=== PATIENT | female | born 1945 | race Hispanic/Latino ===

== ENCOUNTER → 2017-03-19 | Outpatient (CLI) | payer OTHER ==
[~2017-03-19] MED LIST: AMLO-334 PO; SIMV10TA6 PO
== END | disposition home or self-care (01) ==
LOC: RAH 08:03
PROVIDERS: ATTEND Family Medicine
DX: Z12.31 Encounter for screening mammogram for malignant neoplasm of breast (principal)
CPT/HCPCS: 77067

== ENCOUNTER → 2018-05-29 | Outpatient (CLI) | payer OTHER | END | disposition home or self-care (01) | LOC: RAH 07:39 | PROVIDERS: ATTEND Family Medicine | DX: Z12.31 Encounter for screening mammogram for malignant neoplasm of breast (principal) | CPT/HCPCS: 77067 ==

== ENCOUNTER → 2019-06-17 | Outpatient (CLI) | payer OTHER ==
[~2019-06-17] MED LIST changes: -AMLO-334 PO; +AMLO-389 PO; -SIMV10TA6 PO; +SIMV10TA97 PO
== END | disposition home or self-care (01) ==
LOC: RAH 11:06
PROVIDERS: ATTEND Family Medicine
DX: Z12.31 Encounter for screening mammogram for malignant neoplasm of breast (principal)
CPT/HCPCS: 77067

== ENCOUNTER 2020-06-29 12:30 | Inpatient (IN) | payer OTHER ==
[~2020-06-29] VITALS: Ht 154.9 cm; Wt 71.5 kg
[2020-06-29] MEDS ORDERED: HYDROCODONE/ACETAMINOPHEN 10/325 MG TAB ONE (13:06)
[2020-06-29 13:42] LABS: BASOPHILS % (AUTO) 0.5 % (0.0-5.0); EOSINOPHILS % (AUTO) 5.5 % (0.0-8.0); HEMATOCRIT 43.1 % (36-48); LYMPHOCYTES % (AUTO) 31.1 % (21.0-51.0); MEAN CORPUSCULAR HGB CONC 32.7 g/dL (32.0-36.0); MEAN CORPUSCULAR VOLUME 85.7 fL (79-99); MONOCYTES % (AUTO) 11.6 % (3.0-13.0); NEUTROPHILS % (AUTO) 50.9 % (40.0-77.0); PLATELET COUNT (AUTO) 232 K/uL (130-400); RED BLOOD CELL COUNT(AUTO) 5.03 MIL/uL (4.00-5.50); RED CELL DISTRIBUTION WIDTH 13.9 % (11.0-15.5); WHITE BLOOD COUNT (AUTO) 7.9 K/uL (4.8-10.8)
[2020-06-29 14:01] LABS: ALBUMIN 3.6 g/dL (3.5-5.0); BILIRUBIN,TOTAL 0.5 mg/dL (0.2-1.0); CREATININE 0.6 mg/dL (0.5-1.5); POTASSIUM 3.4 mmol/L (3.5-5.1)
[2020-06-29] MEDS ORDERED: NITROGLYCERIN 1GM/1 INCH PACKET TD ONE (14:07)
[2020-06-29] MEDS ORDERED: ENOXAPARIN SODIUM 60 MG/0.6 ML SQ ONE (14:23)
[2020-06-29 14:36] LABS: B-TYPE NATRIURETIC PEPTIDE 83 pg/mL (0-100)
[2020-06-29] MEDS ORDERED: NITROGLYCERIN 0.4 MG SL TAB SL PRN (15:15)
[2020-06-29] MEDS ORDERED: ACETAMINOPHEN-CODEINE 300/30MG TAB PO PRN (15:15)
[2020-06-29] MEDS ORDERED: DIPHENHYDRAMINE HCL 25 MG CAPSULE PO PRN (15:15)
[2020-06-29] MEDS ORDERED: POTASSIUM CHLORIDE 20MEQ/100ML 100 ML IV PRN (15:15)
[2020-06-29] MEDS ORDERED: ONDANSETRON HCL 4 MG/2 ML VIAL IV PRN (15:15)
[2020-06-29] MEDS ORDERED: GUAIFENESIN-DM 200/20 MG 10 ML PO PRN (15:15)
[2020-06-29] MEDS: SODIUM CHLORIDE 0.9% 1000ML 1,000 ML IV SCH (15:15)
[2020-06-29] MEDS ORDERED: LIDOCAINE HCL-MPF 1% 2ML VIAL IV PRN (15:15)
[2020-06-29] MEDS: INSULIN HUMULIN R 100 UNIT/ML 3ML SQ SCH ×2 (16:30→21:00)
[2020-06-29] MEDS ORDERED: POTASSIUM CHLORIDE 20 MEQ ERTAB PO ONE (16:34)
[2020-06-29] MEDS ORDERED: SODIUM CHLORIDE 0.9% 1000ML 1,000 ML IV ONE (16:35)
[2020-06-29] MEDS ORDERED: FAMOTIDINE 20MG TAB 20 MG TAB ONE (20:11)
[2020-06-29] MEDS ORDERED: ACETAMINOPHEN 325 MG TAB ONE (20:11)
[2020-06-29] MEDS: FAMOTIDINE 20MG TAB 20 MG TAB PO SCH (21:00)
[2020-06-29 23:00] VITALS: BP 146/71
[2020-06-30 04:00] VITALS: BP 118/57
[2020-06-30] MEDS: INSULIN HUMULIN R 100 UNIT/ML 3ML SQ SCH ×4 (06:57→20:50)
[2020-06-30 08:41] VITALS: BP 142/73
[2020-06-30] MEDS: AMLODIPINE BESYLATE 5 MG TAB PO SCH (08:45)
[2020-06-30] MEDS: LOSARTAN 100 MG TABLET PO SCH (08:45)
[2020-06-30] MEDS: FAMOTIDINE 20MG TAB 20 MG TAB PO SCH ×2 (08:45→20:54)
[2020-06-30] MEDS: ENOXAPARIN SODIUM 30 MG/0.3 ML SQ SCH (08:46)
[2020-06-30] MEDS ORDERED: AMLODIPINE PO SCH (09:00)
[2020-06-30] MEDS ORDERED: VALSARTAN PO SCH (09:00)
[2020-06-30] MEDS ORDERED: [UNRECOGNIZED DRUG - OTHER] PO SCH (09:00)
[2020-06-30] MEDS: HYDROCODONE/ACETAMINOPHEN 5/325 MG TAB PO PRN ×2 (09:06→20:59)
[2020-06-30] MEDS: SODIUM CHLORIDE 0.9% 1000ML 1,000 ML IV SCH (11:34)
[2020-06-30 11:39] VITALS: BP 143/79
[2020-06-30 16:47] VITALS: BP 140/64
[2020-06-30 20:00] VITALS: BP 154/80
[2020-06-30] MEDS ORDERED: SIMVASTATIN 10 MG TABLET PO SCH (21:00)
[2020-07-01] VITALS: BP 127/46
[2020-07-01 04:00] VITALS: BP 160/65
[2020-07-01] MEDS: INSULIN HUMULIN R 100 UNIT/ML 3ML SQ SCH ×4 (06:22→21:00)
[2020-07-01 08:51] VITALS: BP 138/56
[2020-07-01] MEDS: AMLODIPINE BESYLATE 5 MG TAB PO SCH (09:46)
[2020-07-01] MEDS: FAMOTIDINE 20MG TAB 20 MG TAB PO SCH ×2 (09:48→22:05)
[2020-07-01] MEDS: LOSARTAN 100 MG TABLET PO SCH (09:48)
[2020-07-01] MEDS: ACETAMINOPHEN 325 MG TAB PO PRN (09:48)
[2020-07-01] MEDS: ENOXAPARIN SODIUM 30 MG/0.3 ML SQ SCH (09:49)
[2020-07-01 12:21] VITALS: BP 157/70
[2020-07-01] MEDS ORDERED: HYDRALAZINE HCL 20 MG/ML VIAL IM PRN (17:45)
[2020-07-01 19:47] VITALS: BP 121/52
[2020-07-01] MEDS: ATORVASTATIN CALCIUM 20 MG TABLET PO SCH (22:05)
[2020-07-01 23:39] VITALS: BP 132/59
[2020-07-02] MEDS: POTASSIUM CHLORIDE 10% ELIXIR 20 MEQ/15 ML UDCUP PO PRN ×2 (02:19→04:21)
[2020-07-02 05:12] VITALS: BP 143/67
[2020-07-02] MEDS: INSULIN HUMULIN R 100 UNIT/ML 3ML SQ SCH ×4 (07:12→21:00)
[2020-07-02 08:21] VITALS: BP_SYST 128; BP_SYST 142; BP_DIAS 61; BP_DIAS 69
[2020-07-02] MEDS: FAMOTIDINE 20MG TAB 20 MG TAB PO SCH ×2 (09:04→20:14)
[2020-07-02] MEDS: AMLODIPINE BESYLATE 5 MG TAB PO SCH (09:05)
[2020-07-02] MEDS: LOSARTAN 100 MG TABLET PO SCH (09:05)
[2020-07-02] MEDS: POTASSIUM CHLORIDE 20 MEQ ERTAB PO PRN (09:05)
[2020-07-02 10:31] LABS: ALBUMIN 3.5 g/dL (3.5-5.0); CREATININE 0.7 mg/dL (0.5-1.5); PHOSPHORUS 3.6 mg/dL (2.5-4.9); POTASSIUM 3.8 mmol/L (3.5-5.1)
[2020-07-02 10:33] LABS: BILIRUBIN,TOTAL 0.5 mg/dL (0.2-1.0); TOTAL PROTEIN, SERUM 8.5 g/dL (6.0-8.3)
[2020-07-02 11:57] VITALS: BP 158/78
[2020-07-02] MEDS: ENOXAPARIN SODIUM 30 MG/0.3 ML SQ SCH (12:59)
[2020-07-02] MEDS: NICOTINE 21 MG/ 24 HR PATCH TD SCH (12:59)
[2020-07-02 16:00] VITALS: BP 158/70
[2020-07-02 19:32] VITALS: BP 155/80
[2020-07-02] MEDS: CLOPIDOGREL BISULFATE 75 MG TAB PO SCH (20:14)
[2020-07-02] MEDS: ATORVASTATIN CALCIUM 20 MG TABLET PO SCH (20:14)
[2020-07-03] VITALS (7 sets, daily range): BP systolic 141–158; BP diastolic 66–77
[2020-07-03] MEDS: INSULIN HUMULIN R 100 UNIT/ML 3ML SQ SCH ×4 (06:26→21:00)
[2020-07-03] MEDS ORDERED: CLOPIDOGREL BISULFATE 75 MG TAB PO SCH (09:00)
[2020-07-03] MEDS: CLOPIDOGREL BISULFATE 75 MG TAB PO SCH (09:37)
[2020-07-03] MEDS: LOSARTAN 100 MG TABLET PO SCH (09:37)
[2020-07-03] MEDS: AMLODIPINE BESYLATE 5 MG TAB PO SCH (09:37)
[2020-07-03] MEDS: FAMOTIDINE 20MG TAB 20 MG TAB PO SCH ×2 (09:37→21:03)
[2020-07-03] MEDS: ENOXAPARIN SODIUM 30 MG/0.3 ML SQ SCH (09:38)
[2020-07-03] MEDS: NICOTINE 21 MG/ 24 HR PATCH TD SCH (09:40)
[2020-07-03] MEDS ORDERED: IOHEXOL-350 75 ML VIAL IV ONE ×2 (16:19→16:59)
[2020-07-03] MEDS: ATORVASTATIN CALCIUM 20 MG TABLET PO SCH (21:03)
[2020-07-04] VITALS (8 sets, daily range): BP systolic 116–158; BP diastolic 55–89
[2020-07-04 04:49] LABS: HEMATOCRIT 42.5 % (36-48); MEAN CORPUSCULAR HEMOGLOBIN 27.2 pg (27.0-33.0); MEAN CORPUSCULAR HGB CONC 32.9 g/dL (32.0-36.0); MEAN CORPUSCULAR VOLUME 82.5 fL (79-99); RED BLOOD CELL COUNT(AUTO) 5.15 MIL/uL (4.00-5.50); RED CELL DISTRIBUTION WIDTH 13.7 % (11.0-15.5); WHITE BLOOD COUNT (AUTO) 8.8 K/uL (4.8-10.8)
[2020-07-04 05:01] LABS: CREATININE 0.9 mg/dL (0.5-1.5)
[2020-07-04] MEDS: INSULIN HUMULIN R 100 UNIT/ML 3ML SQ SCH ×4 (06:29→21:00)
[2020-07-04] MEDS ORDERED: IOHEXOL 350 MG/ML 100ML INFUS..BTL IV ONE (07:19)
[2020-07-04] MEDS ORDERED: GADOTERATE MEGLUMINE 10 MMOL/20 ML VIAL IV ONE (07:29)
[2020-07-04] MEDS: AMLODIPINE BESYLATE 5 MG TAB PO SCH (10:03)
[2020-07-04] MEDS: FAMOTIDINE 20MG TAB 20 MG TAB PO SCH ×2 (10:03→21:02)
[2020-07-04] MEDS: LOSARTAN 100 MG TABLET PO SCH (10:03)
[2020-07-04] MEDS: NICOTINE 21 MG/ 24 HR PATCH TD SCH (10:03)
[2020-07-04] MEDS: CLOPIDOGREL BISULFATE 75 MG TAB PO SCH (16:42)
[2020-07-04] MEDS: ENOXAPARIN SODIUM 30 MG/0.3 ML SQ SCH (16:43)
[2020-07-04] MEDS: ATORVASTATIN CALCIUM 20 MG TABLET PO SCH (21:02)
[2020-07-04] MEDS: ACETAMINOPHEN 325 MG TAB PO PRN (21:35)
[2020-07-05] VITALS (25 sets, daily range): BP systolic 112–154; BP diastolic 37–82
[2020-07-05 04:01] LABS: HEMATOCRIT 40.7 % (36-48); MEAN CORPUSCULAR HEMOGLOBIN 27.9 pg (27.0-33.0); MEAN CORPUSCULAR HGB CONC 32.9 g/dL (32.0-36.0); MEAN CORPUSCULAR VOLUME 84.6 fL (79-99); RED BLOOD CELL COUNT(AUTO) 4.81 MIL/uL (4.00-5.50); WHITE BLOOD COUNT (AUTO) 8.6 K/uL (4.8-10.8)
[2020-07-05 04:08] LABS: CREATININE 0.9 mg/dL (0.5-1.5); POTASSIUM 3.9 mmol/L (3.5-5.1)
[2020-07-05] MEDS: INSULIN HUMULIN R 100 UNIT/ML 3ML SQ SCH ×4 (06:08→20:10)
[2020-07-05] MEDS: AMLODIPINE BESYLATE 5 MG TAB PO SCH (08:33)
[2020-07-05] MEDS: CLOPIDOGREL BISULFATE 75 MG TAB PO SCH (08:33)
[2020-07-05] MEDS: LOSARTAN 100 MG TABLET PO SCH (08:33)
[2020-07-05] MEDS: ENOXAPARIN SODIUM 30 MG/0.3 ML SQ SCH (08:33)
[2020-07-05] MEDS: FAMOTIDINE 20MG TAB 20 MG TAB PO SCH ×2 (08:33→20:09)
[2020-07-05] MEDS: NICOTINE 21 MG/ 24 HR PATCH TD SCH (09:26)
[2020-07-05] MEDS: ATORVASTATIN CALCIUM 20 MG TABLET PO SCH (20:10)
[2020-07-05] MEDS ORDERED: HYDRALAZINE HCL 20 MG/ML VIAL ONE (22:28)
[2020-07-05] MEDS ORDERED: HYDRALAZINE HCL 20 MG/ML VIAL IV PRN (23:45)
[2020-07-06] VITALS (19 sets, daily range): BP systolic 110–153; BP diastolic 53–85
[2020-07-06] MEDS ORDERED: LABETALOL 20 MG/4 ML DISP.SYRIN IV ONE (01:41)
[2020-07-06] MEDS ORDERED: LABETALOL HCL 5 MG/ML 20ML VIAL IV PRN (01:45)
[2020-07-06] MEDS: CLONIDINE HCL 0.1 MG TABLET PO PRN (04:21)
[2020-07-06] MEDS: INSULIN HUMULIN R 100 UNIT/ML 3ML SQ SCH ×4 (06:36→20:29)
[2020-07-06] MEDS: FAMOTIDINE 20MG TAB 20 MG TAB PO SCH ×2 (08:19→20:30)
[2020-07-06] MEDS: CLOPIDOGREL BISULFATE 75 MG TAB PO SCH (08:19)
[2020-07-06] MEDS: ENOXAPARIN SODIUM 30 MG/0.3 ML SQ SCH (08:20)
[2020-07-06] MEDS: NICOTINE 21 MG/ 24 HR PATCH TD SCH (08:21)
[2020-07-06] MEDS: LOSARTAN 100 MG TABLET PO SCH ×2 (08:33→12:13)
[2020-07-06] MEDS: AMLODIPINE BESYLATE 5 MG TAB PO SCH ×2 (08:33→12:12)
[2020-07-06] MEDS: ACETAMINOPHEN 325 MG TAB PO PRN ×2 (12:12→13:15)
[2020-07-06] MEDS: ATORVASTATIN CALCIUM 20 MG TABLET PO SCH (20:30)
[2020-07-07 03:00] VITALS: BP 168/77
[2020-07-07] MEDS: CLONIDINE HCL 0.1 MG TABLET PO PRN (03:33)
[2020-07-07] MEDS: INSULIN HUMULIN R 100 UNIT/ML 3ML SQ SCH ×4 (05:24→21:00)
[2020-07-07 05:55] VITALS: BP 126/65
[2020-07-07 07:30] VITALS: BP 113/55
[2020-07-07] MEDS: NICOTINE 21 MG/ 24 HR PATCH TD SCH ×2 (09:00→09:19)
[2020-07-07] MEDS: ENOXAPARIN SODIUM 30 MG/0.3 ML SQ SCH (09:18)
[2020-07-07] MEDS: FAMOTIDINE 20MG TAB 20 MG TAB PO SCH ×2 (09:19→20:16)
[2020-07-07] MEDS: CLOPIDOGREL BISULFATE 75 MG TAB PO SCH (09:19)
[2020-07-07 11:36] VITALS: BP 117/58
[2020-07-07 15:10] VITALS: BP 118/75
[2020-07-07] MEDS: ATORVASTATIN CALCIUM 20 MG TABLET PO SCH (20:16)
[2020-07-07] MEDS: LOSARTAN 100 MG TABLET PO SCH (20:16)
[2020-07-07] MEDS: AMLODIPINE BESYLATE 5 MG TAB PO SCH (20:17)
[2020-07-07 23:41] VITALS: BP_SYST 143; BP_SYST 96; BP_DIAS 60; BP_DIAS 69
[2020-07-08 03:44] VITALS: BP 129/71
[2020-07-08 06:59] VITALS: BP 123/55
[2020-07-08] MEDS: INSULIN HUMULIN R 100 UNIT/ML 3ML SQ SCH ×4 (07:21→21:00)
[2020-07-08] MEDS: NICOTINE 21 MG/ 24 HR PATCH TD SCH ×2 (09:00→09:48)
[2020-07-08] MEDS: FAMOTIDINE 20MG TAB 20 MG TAB PO SCH ×2 (09:08→20:17)
[2020-07-08] MEDS: ENOXAPARIN SODIUM 30 MG/0.3 ML SQ SCH (09:09)
[2020-07-08] MEDS: CLOPIDOGREL BISULFATE 75 MG TAB PO SCH (09:09)
[2020-07-08 12:05] VITALS: BP 122/59
[2020-07-08 15:50] VITALS: BP 133/63
[2020-07-08 19:50] VITALS: BP 132/68
[2020-07-08] MEDS: LOSARTAN 100 MG TABLET PO SCH (20:17)
[2020-07-08] MEDS: ATORVASTATIN CALCIUM 20 MG TABLET PO SCH (20:17)
[2020-07-08] MEDS: AMLODIPINE BESYLATE 5 MG TAB PO SCH (20:17)
[2020-07-08 23:50] VITALS: BP 148/71
[2020-07-09 03:06] VITALS: BP 132/63
[2020-07-09 03:55] LABS: BASOPHILS % (AUTO) 0.4 % (0.0-5.0); EOSINOPHILS % (AUTO) 3.7 % (0.0-8.0); HEMATOCRIT 40.7 % (36-48); LYMPHOCYTES % (AUTO) 26.9 % (21.0-51.0); MEAN CORPUSCULAR HEMOGLOBIN 27.5 pg (27.0-33.0); MEAN CORPUSCULAR HGB CONC 32.7 g/dL (32.0-36.0); MEAN CORPUSCULAR VOLUME 84.1 fL (79-99); MONOCYTES % (AUTO) 10.5 % (3.0-13.0); PLATELET COUNT (AUTO) 289 K/uL (130-400); RED BLOOD CELL COUNT(AUTO) 4.84 MIL/uL (4.00-5.50); RED CELL DISTRIBUTION WIDTH 13.8 % (11.0-15.5); WHITE BLOOD COUNT (AUTO) 10.1 K/uL (4.8-10.8)
[2020-07-09 04:04] LABS: ALBUMIN 3.1 g/dL (3.5-5.0); BILIRUBIN,TOTAL 0.7 mg/dL (0.2-1.0); CREATININE 0.9 mg/dL (0.5-1.5); POTASSIUM 3.2 mmol/L (3.5-5.1); TOTAL PROTEIN, SERUM 8.3 g/dL (6.0-8.3)
[2020-07-09] MEDS: POTASSIUM CHLORIDE 10% ELIXIR 20 MEQ/15 ML UDCUP PO PRN (06:04)
[2020-07-09] MEDS: INSULIN HUMULIN R 100 UNIT/ML 3ML SQ SCH ×4 (06:56→21:00)
[2020-07-09 08:09] VITALS: BP 107/50
[2020-07-09] MEDS: CLOPIDOGREL BISULFATE 75 MG TAB PO SCH (08:25)
[2020-07-09] MEDS: FAMOTIDINE 20MG TAB 20 MG TAB PO SCH ×2 (08:25→20:35)
[2020-07-09] MEDS: ENOXAPARIN SODIUM 30 MG/0.3 ML SQ SCH (08:26)
[2020-07-09] MEDS: POTASSIUM CHLORIDE 20 MEQ ERTAB PO PRN ×2 (08:26→09:59)
[2020-07-09 11:10] VITALS: BP 150/71
[2020-07-09 15:13] VITALS: BP 137/64
[2020-07-09 19:22] VITALS: BP 160/66
[2020-07-09] MEDS: METOPROLOL TARTRATE 25 MG TAB PO SCH (20:35)
[2020-07-09] MEDS: LOSARTAN 100 MG TABLET PO SCH (20:35)
[2020-07-09] MEDS: ATORVASTATIN CALCIUM 20 MG TABLET PO SCH (20:35)
[2020-07-09 23:56] VITALS: BP 150/66
[2020-07-10 03:50] VITALS: BP 137/69
[2020-07-10] MEDS: INSULIN HUMULIN R 100 UNIT/ML 3ML SQ SCH ×4 (07:30→20:44)
[2020-07-10 08:00] VITALS: BP 136/55
[2020-07-10 08:35] LABS: HEMATOCRIT 40.1 % (36-48); MEAN CORPUSCULAR HEMOGLOBIN 28.1 pg (27.0-33.0); MEAN CORPUSCULAR HGB CONC 32.7 g/dL (32.0-36.0); MEAN CORPUSCULAR VOLUME 86.1 fL (79-99); RED BLOOD CELL COUNT(AUTO) 4.66 MIL/uL (4.00-5.50); RED CELL DISTRIBUTION WIDTH 13.8 % (11.0-15.5); WHITE BLOOD COUNT (AUTO) 9.4 K/uL (4.8-10.8)
[2020-07-10] MEDS: NICOTINE 21 MG/ 24 HR PATCH TD SCH (09:17)
[2020-07-10] MEDS: FAMOTIDINE 20MG TAB 20 MG TAB PO SCH ×2 (09:18→20:44)
[2020-07-10] MEDS: CLOPIDOGREL BISULFATE 75 MG TAB PO SCH (09:18)
[2020-07-10] MEDS: METOPROLOL TARTRATE 25 MG TAB PO SCH ×2 (09:18→20:44)
[2020-07-10] MEDS: ENOXAPARIN SODIUM 30 MG/0.3 ML SQ SCH (09:19)
[2020-07-10 11:57] VITALS: BP 131/49
[2020-07-10 16:00] VITALS: BP 138/57
[2020-07-10 20:08] VITALS: BP 139/69
[2020-07-10] MEDS: LOSARTAN 100 MG TABLET PO SCH (20:43)
[2020-07-10] MEDS: ATORVASTATIN CALCIUM 20 MG TABLET PO SCH (20:44)
[2020-07-10 23:24] VITALS: BP 149/61
[2020-07-11 03:54] VITALS: BP 148/70
[2020-07-11 05:19] LABS: HEMATOCRIT 40.3 % (36-48); MEAN CORPUSCULAR HEMOGLOBIN 27.7 pg (27.0-33.0); MEAN CORPUSCULAR HGB CONC 32.3 g/dL (32.0-36.0); MEAN CORPUSCULAR VOLUME 85.9 fL (79-99); RED BLOOD CELL COUNT(AUTO) 4.69 MIL/uL (4.00-5.50); RED CELL DISTRIBUTION WIDTH 13.5 % (11.0-15.5); WHITE BLOOD COUNT (AUTO) 9.9 K/uL (4.8-10.8)
[2020-07-11 05:36] LABS: CREATININE 0.8 mg/dL (0.5-1.5); POTASSIUM 3.6 mmol/L (3.5-5.1)
[2020-07-11] MEDS: INSULIN HUMULIN R 100 UNIT/ML 3ML SQ SCH ×3 (06:27→16:30)
[2020-07-11 08:00] VITALS: BP 165/73
[2020-07-11] MEDS: CLOPIDOGREL BISULFATE 75 MG TAB PO SCH (08:49)
[2020-07-11] MEDS: METOPROLOL TARTRATE 25 MG TAB PO SCH (08:49)
[2020-07-11] MEDS: FAMOTIDINE 20MG TAB 20 MG TAB PO SCH (08:49)
[2020-07-11] MEDS: NICOTINE 21 MG/ 24 HR PATCH TD SCH (08:50)
[2020-07-11] MEDS: ENOXAPARIN SODIUM 30 MG/0.3 ML SQ SCH (08:50)
[2020-07-11 12:00] VITALS: BP 147/76
[2020-07-11 16:00] VITALS: BP 145/86
== END 2020-07-11 19:08 | DRG 65 ==
LOC: EDH 12:30 → OBSVTOIN 15:04 → EDHIP 15:04 → 4DH 23:05 → 2CH 07-04 19:52 → 2DH 07-06 16:59 → 4CH 07-09 19:10
PROVIDERS: ADMIT Internal Medicine Pulmonary Disease; ATTEND Internal Medicine Pulmonary Disease
DX: I63.9 Cerebral infarction, unspecified (principal); G81.91 Hemiplegia, unspecified affecting right dominant side; G37.9 Demyelinating disease of central nervous system, unspecified; S99.911A Unspecified injury of right ankle, initial encounter; I71.4 Abdominal aortic aneurysm, without rupture; E78.5 Hyperlipidemia, unspecified; I67.2 Cerebral atherosclerosis; R01.1 Cardiac murmur, unspecified; R77.8 Other specified abnormalities of plasma proteins; I10 Essential (primary) hypertension; R47.1 Dysarthria and anarthria; Z20.822 Contact with and (suspected) exposure to COVID-19; E78.00 Pure hypercholesterolemia, unspecified; F17.210 Nicotine dependence, cigarettes, uncomplicated; G20 Parkinson's disease; G51.0 Bell's palsy; G93.9 Disorder of brain, unspecified; I25.10 Atherosclerotic heart disease of native coronary artery without angina pectoris; J44.9 Chronic obstructive pulmonary disease, unspecified; R29.702 NIHSS score 2; M20.11 Hallux valgus (acquired), right foot; W19.XXXA Unspecified fall, initial encounter; Y93.89 Activity, other specified; Y92.098 Other place in other non-institutional residence as the place of occurrence of the external cause; Y99.8 Other external cause status; Z86.79 Personal history of other diseases of the circulatory system; Z79.02 Long term (current) use of antithrombotics/antiplatelets; Z79.899 Other long term (current) drug therapy; Z88.6 Allergy status to analgesic agent; Z88.7 Allergy status to serum and vaccine; Z95.1 Presence of aortocoronary bypass graft
CPT/HCPCS: 36415; 70450; 70496; 70498; 70551; 70553; 71275; 72125; 73600; 73630; 74174; 80048; 80053; 82948; 83735; 83880; 84100; 84132; 84484; 85025; 85027; 86140; 87426; 92522; 92526; 92610; 93005; 93306; 93308; 93356; 93880; 97039; G0378; J0360; J1650; J1815; J2405; J3480; J7030; Q9967

== ENCOUNTER → 2020-10-09 | Outpatient (CLI) | payer MEDICARE, OTHER ==
[~2020-10-09] MED LIST changes: +GADOTERATE MEGLUMINE 10 MMOL/20 ML VIAL IV ONE
== END | disposition home or self-care (01) ==
LOC: RAH 13:54
PROVIDERS: ATTEND Psychiatry & Neurology Neurology
DX: I67.82 Cerebral ischemia (principal)
CPT/HCPCS: 70553; A9575